=== PATIENT | female | born 1975 | race Two or more races ===

== ENCOUNTER 2019-01-11 13:38 | Observation (INO) | payer OTHER ==
[~2019-01-11] VITALS: Ht 160 cm; Wt 76.0 kg
[2019-01-12 13:02] VITALS: BP 102/66
== END 2019-01-12 14:50 | disposition home or self-care (01) ==
LOC: OR 13:38 → 4NOR 20:40 → OR 22:51 → 4NOR 22:52
PROVIDERS: ADMIT Obstetrics & Gynecology Gynecology; ATTEND Obstetrics & Gynecology Gynecology
DX: D25.9 Leiomyoma of uterus, unspecified (principal); N94.6 Dysmenorrhea, unspecified; N93.9 Abnormal uterine and vaginal bleeding, unspecified
CPT/HCPCS: 36415; 58571; 81025; 85014; 85018; 85025; 88307; 96374; 96375; G0378; J0171; J0330; J0690; J1100; J1885; J2250; J2270; J2405; J2704; J3010; J3490; J7120; S2900